=== PATIENT | female | born 1980 | race Caucasian/White ===

== ENCOUNTER 2023-03-21 12:04 | Emergency (ER) | payer BC, SELFPAY ==
[2023-03-21] MEDS ORDERED: Acetaminophen 500 MG TAB ONE (12:47)
== END 2023-03-21 13:30 | disposition home or self-care (01) ==
LOC: CSHERS 12:04
DX: S06.0X0A Concussion without loss of consciousness, initial encounter (principal); W18.30XA Fall on same level, unspecified, initial encounter
CPT/HCPCS: 70450; 72125; 93005